=== PATIENT | female | born 1950 | race Caucasian/White ===

== ENCOUNTER 2016-12-04 19:36 | Inpatient (IN) | payer MEDICARE, OTHER ==
[2016-12-04] MEDS ORDERED: ACETAMINOPHEN TAB 500 MG TAB PO STA (19:48)
[2016-12-04 19:50] LABS: Glucose,Whole Blood 435 mg/dL (75-99)
--- NOTE | 2016-12-04 19:51 | ED ---
General Adult HPI - General Chief complaint: Altered Mental Status Stated complaint: altered mental status Time Seen by Provider: 12/04/16 19:38 Source: patient, EMS, RN notes reviewed Mode of arrival: EMS Limitations: altered mental status, physical limitation - History of Present Illness Initial comments: Patient is a pleasant 66-year-old female presenting to the emergency Department with decreased responsiveness. Onset of symptoms was today. Patient's from an [facility] home. Patient is a poor historian and offers little history. Patient states she did have a cough this morning. Patient feels achy all over. Further history is limited and patient has difficulty following commands. - Related Data Home Medications Medication Instructions Recorded Confirmed Cholecalciferol (Vitamin D3) 2,000 unit PO DAILY@1200 12/04/16 12/04/16 [Vitamin D3] Cyanocobalamin [Vitamin B-12] 500 mcg PO DAILY 12/04/16 12/04/16 Divalproex ER [Depakote ER] 1,000 mg PO QAM 12/04/16 12/04/16 Divalproex ER [Depakote ER] 250 mg PO QAM 12/04/16 12/04/16 Docusate [Colace] 100 mg PO HS 12/04/16 12/04/16 Famotidine [Pepcid] 20 mg PO BID 12/04/16 12/04/16 Furosemide [Lasix] 40 mg PO Q48H 12/04/16 12/04/16 Insulin Glargine,Hum.rec.anlog 26 unit SQ DAILY@1200 12/04/16 12/04/16 [Lantus Solostar] Isosorbide Mononitrate ER [Imdur] 30 mg PO DAILY 12/04/16 12/04/16 Levothyroxine Sodium [Synthroid] 137 mcg PO DAILY 12/04/16 12/04/16 Loratadine [Claritin] 10 mg PO HS 12/04/16 12/04/16 Oxybutynin ER [Ditropan Xl] 10 mg PO QAM 12/04/16 12/04/16 Pravastatin Sodium [Pravachol] 40 mg PO HS 12/04/16 12/04/16 QUEtiapine FUMARATE [Seroquel Xr] 800 mg PO DAILY@1700 12/04/16 12/04/16 Allergies Allergy/AdvReac Type Severity Reaction Status Date / Time morphine Allergy Rash/Hives Verified 12/04/16 20:04 Review of Systems ROS Statement: Those systems with pertinent positive or pertinent negative responses have been documented in the HPI. ROS Other: All systems not noted in ROS Statement are negative. Constitutional: Reports: fever Eyes: Denies: eye pain ENT: Reports: throat pain. Denies: ear pain Respiratory: Reports: cough Cardiovascular: Denies: chest pain Endocrine: Reports: fatigue Gastrointestinal: Denies: abdominal pain Genitourinary: Denies: dysuria Musculoskeletal: Denies: back pain Skin: Denies: rash Neurological: Denies: headache Past Medical History Past Medical History: Unable to Obtain, Diabetes Mellitus History of Any Multi-Drug Resistant Organisms: Unobtainable Past Surgical History: Unable to Obtain Past Psychological History: Unable to Obtain Smoking Status: Unknown if ever smoked Past Alcohol Use History: Unable to Obtain Past Drug Use History: None Reported General Exam Limitations: altered mental status, physical limitation General appearance: alert, in no apparent distress Head exam: Present: atraumatic Eye exam: Present: normal appearance, PERRL ENT exam: Present: mucous membranes dry Neck exam: Present: normal inspection Respiratory exam: Present: normal lung sounds bilaterally Cardiovascular Exam: Present: regular rate, normal rhythm GI/Abdominal exam: Present: soft. Absent: tenderness Extremities exam: Present: normal inspection. Absent: calf tenderness Neurological exam: Present: alert. Absent: motor sensory deficit (Somewhat limited exam) Expanded Patient oriented to: Present: person, place. Absent: time Motor strength exam: RUE: 5, LUE: 5, RLE: 5 (Limited exam), LLE: 5 (Limited exam ) Eye Response: (4) open spontaneously Motor Response: (6) obeys commands Verbal Response: (4) confused conversation Psychiatric exam: Present: normal affect, normal mood Skin exam: Present: normal color. Absent: rash Course Vital Signs 12/04/16 19:43 Temperature 100.8 F H Pulse Rate 96 Respiratory 18 Rate Blood Pressure 146/66 O2 Sat by Pulse 94 L Oximetry - Reevaluation(s) Reevaluation #1: 12/04/16 20:16 Urinalysis has concern for infection. Based on this and normal vital signs patient does meet sepsis criteria diagnosed at 2016. 12/04/16 20:57 Patient reevaluated and updated. Patient remains alert. Case discussed in detail with Dr. wolf, who will admit for Dr. Smith. EKG Findings - EKG Comments: EKG Findings:: Normal sinus rhythm 95. RI 170. QRS 86. QT 328. QTC 40. Normal axis. Normal QRS. Nonspecific ST-T. Medical Decision Making - Lab Data Result diagrams: 12/04/16 19:48 12/04/16 19:48 Lab Results 12/04/16 12/04/16 12/04/16 Range/Units 19:47 19:48 19:48 WBC 13.5 H (3.8-10.6) k/uL RBC 4.21 (3.80-5.40) m/uL Hgb 13.0 (11.4-16.0) gm/dL Hct 40.0 (34.0-46.0) % MCV 95.1 (80.0-100.0) fL MCH 30.8 (25.0-35.0) pg MCHC 32.4 (31.0-37.0) g/dL RDW 14.7 (11.5-15.5) % Plt Count 167 (150-450) k/uL Neutrophils % 76 % Lymphocytes % 8 % Monocytes % 13 % Eosinophils % 1 % Basophils % 0 % Neutrophils # 10.2 H (1.3-7.7) k/uL Lymphocytes # 1.1 (1.0-4.8) k/uL Monocytes # 1.8 H (0-1.0) k/uL Eosinophils # 0.1 (0-0.7) k/uL Basophils # 0.1 (0-0.2) k/uL Manual Slide Review Performed Poikilocytosis (manual Present PT (9.0-12.0) sec INR (<1.2) APTT (22.0-30.0) sec Sodium 132 L (137-145) mmol/L Potassium 4.7 (3.5-5.1) mmol/L Chloride 100 (98-107) mmol/L Carbon Dioxide 22 (22-30) mmol/L Anion Gap 10 mmol/L BUN 23 H (7-17) mg/dL Creatinine 1.30 H (0.52-1.04) mg/dL Est GFR (MDRD) Af Amer 50 (>60 ml/min/1.73 sqM) Est GFR (MDRD) Non-Af 41 (>60 ml/min/1.73 sqM) Glucose 531 H* (74-99) mg/dL POC Glucose (mg/dL) 435 H (75-99) mg/dL POC Glu Heat Treater ID Екатерина Aguilera Plasma Lactic Acid Lauri (0.7-2.0) mmol/L Calcium 9.5 (8.4-10.2) mg/dL Total Bilirubin 0.5 (0.2-1.3) mg/dL AST 16 (14-36) U/L ALT 22 (9-52) U/L Alkaline Phosphatase 132 H (38-126) U/L Total Protein 6.3 (6.3-8.2) g/dL Albumin 3.1 L (3.5-5.0) g/dL Urine Color Urine Appearance (Clear) Urine pH (5.0-8.0) Ur Specific [place] (1.001-1.035) Urine Protein (Negative) Urine Glucose (UA) (Negative) Urine Ketones (Negative) Urine Blood (Negative) Urine Nitrite (Negative) Urine Bilirubin (Negative) Urine Urobilinogen (<2.0) mg/dL Ur Leukocyte Esterase (Negative) Urine WBC (0-5) /hpf Urine WBC Clumps (None) /hpf Urine Bacteria (None) /hpf 12/04/16 12/04/16 12/04/16 Range/Units 19:48 19:48 19:56 WBC (3.8-10.6) k/uL RBC (3.80-5.40) m/uL Hgb (11.4-16.0) gm/dL Hct (34.0-46.0) % MCV (80.0-100.0) fL MCH (25.0-35.0) pg MCHC (31.0-37.0) g/dL RDW (11.5-15.5) % Plt Count (150-450) k/uL Neutrophils % % Lymphocytes % % Monocytes % % Eosinophils % % Basophils % % Neutrophils # (1.3-7.7) k/uL Lymphocytes # (1.0-4.8) k/uL Monocytes # (0-1.0) k/uL Eosinophils # (0-0.7) k/uL Basophils # (0-0.2) k/uL Manual Slide Review Poikilocytosis (manual PT 10.8 (9.0-12.0) sec INR 1.1 (<1.2) APTT 25.1 (22.0-30.0) sec Sodium (137-145) mmol/L Potassium (3.5-5.1) mmol/L Chloride (98-107) mmol/L Carbon Dioxide (22-30) mmol/L Anion Gap mmol/L BUN (7-17) mg/dL Creatinine (0.52-1.04) mg/dL Est GFR (MDRD) Af Amer (>60 ml/min/1.73 sqM) Est GFR (MDRD) Non-Af (>60 ml/min/1.73 sqM) Glucose (74-99) mg/dL POC Glucose (mg/dL) (75-99) mg/dL POC Glu Heat Treater ID Plasma Lactic Acid Lauri 1.4 (0.7-2.0) mmol/L Calcium (8.4-10.2) mg/dL Total Bilirubin (0.2-1.3) mg/dL AST (14-36) U/L ALT (9-52) U/L Alkaline Phosphatase (38-126) U/L Total Protein (6.3-8.2) g/dL Albumin (3.5-5.0) g/dL Urine Color Light Yellow Urine Appearance Cloudy H (Clear) Urine pH 6.0 (5.0-8.0) Ur Specific [place] 1.013 (1.001-1.035) Urine Protein 1+ H (Negative) Urine Glucose (UA) 4+ H (Negative) Urine Ketones Trace H (Negative) Urine Blood Small H (Negative) Urine Nitrite Positive H (Negative) Urine Bilirubin Negative (Negative) Urine Urobilinogen <2.0 (<2.0) mg/dL Ur Leukocyte Esterase Moderate H (Negative) Urine WBC 26 H (0-5) /hpf Urine WBC Clumps Occasional H (None) /hpf Urine Bacteria Many H (None) /hpf - Radiology Data Radiology results: image reviewed (Chest x-ray suspicious for left lower lobe infiltrate/effusion) Critical Care Time Critical Care Time: Yes Total Critical Care Time: 31 Disposition Clinical Impression: Sepsis, Urinary tract infection, Pneumonia Disposition: ADMITTED IP TO THIS HOSP Condition: Serious Referrals: Kyree Smith MD [Primary Care Provider] - 1-2 days Decision Time: 20:58
[2016-12-04] MEDS: SODIUM CHLORIDE 0.9% 500 ML IV SCH ×2 (20:02→21:10)
[2016-12-04 20:11] LABS: Basophils # (A) 0.1 k/uL (0-0.2); Basophils % (A) 0 %; CH 29.6; CHCM 31.2; Eosinophils # (A) 0.1 k/uL (0-0.7); Eosinophils % (A) 1 %; Immature Gran Flag Slight; Luc # (Auto) 0.26; Luc % (Auto) 2; Lymphocytes # (A) 1.1 k/uL (1.0-4.8); Lymphocytes % (A) 8 %; MCH 30.8 pg (25.0-35.0); MCHC 32.4 g/dL (31.0-37.0); MCV 95.1 fL (80.0-100.0); Mean Platelet Volume 7.6; Monocytes # (A) 1.8 k/uL (0-1.0); Monocytes % (A) 13 %; Neutrophils # (A) 10.2 k/uL (1.3-7.7); Neutrophils % (A) 76 %; RBC 4.21 m/uL (3.80-5.40); RDW 14.7 % (11.5-15.5); WBC 13.5 k/uL (3.8-10.6); WBC (Perox) 13.43
[2016-12-04 20:12] LABS: Appearance,Urine Cloudy (Clear); Bacteria,Urine Many /hpf; Bilirubin,Urine Negative (Negative); Glucose,Urine (UA) 4+ (Negative); Ketones,Urine Trace (Negative); Leukocyte Esterase,Urine Moderate (Negative); Nitrite,Urine Positive (Negative); Particle Count 22375; Protein,Urine 1+ (Negative); Specific Gravity,Urine 1.013 (1.001-1.035); UA Billing (MACRO vs. MICRO) MICRO; Urobilinogen,Urine <2.0 mg/dL (<2.0); WBC,Urine 26 /hpf (0-5)
[2016-12-04] MEDS ORDERED: INSULIN REGULAR 100 UNIT/ML VIAL SQ ONE (20:13)
--- NOTE | 2016-12-04 20:24 | XR ---
EXAMINATION TYPE: XR chest 2V DATE OF EXAM: 12/04/2016 COMPARISON: NONE HISTORY: Altered mental status TECHNIQUE: Frontal and lateral views of the chest are obtained. FINDINGS: There is blunting of costophrenic angles. There is coarsening of interstitial markings. Th ere is no gross heart failure. Heart size is within normal limits. Thoracic aorta is atheromatous. Th ere are chest leads. Bones appear osteopenic. IMPRESSION: Small pleural effusions. No gross heart failure. There is probably a minimal infiltrate in the left lower lobe.
[2016-12-04 20:27] LABS: INR 1.1 (<1.2); Partial Thromboplastin Time 25.1 sec (22.0-30.0); Prothrombin Time 10.8 sec (9.0-12.0)
[2016-12-04 20:28] LABS: Calcium 9.5 mg/dL (8.4-10.2); Potassium 4.7 mmol/L (3.5-5.1); Total Bilirubin 0.5 mg/dL (0.2-1.3); Total Protein 6.3 g/dL (6.3-8.2)
[2016-12-04 20:36] LABS: Manual Review Performed
[2016-12-04] MEDS ORDERED: PNEUMONIA PROTOCOL UTILIZED 1 EACH MISC PO PRN (20:58)
[2016-12-04] MEDS ORDERED: AZITHROMYCIN 500 MG in SODIUM CHLORIDE 0.9% 250 ML IVPB STA (20:58)
[2016-12-04] MEDS ORDERED: INSULIN LISPRO (humaLOG) 300 UNIT/3 ML VIAL SQ SCH (21:00)
[2016-12-04] MEDS: SODIUM CHLORIDE 0.9% 1,000 ML IV SCH (22:10)
[2016-12-04 23:38] LABS: Glucose,Whole Blood 337 mg/dL (75-99)
[2016-12-05 01:19] LABS: Glucose,Whole Blood 315 mg/dL (75-99)
[2016-12-05] MEDS ORDERED: INSULIN REGULAR 100 UNIT in SODIUM CHLORIDE 0.9% 100 ML IV SCH (01:30)
[2016-12-05 02:36] LABS: Glucose,Whole Blood 213 mg/dL (75-99)
[2016-12-05 03:06] LABS: Glucose,Whole Blood 118 mg/dL (75-99)
[2016-12-05 03:32] LABS: Glucose,Whole Blood 106 mg/dL (75-99)
[2016-12-05 04:12] LABS: Glucose,Whole Blood 82 mg/dL (75-99)
[2016-12-05 04:54] LABS: Glucose,Whole Blood 91 mg/dL (75-99)
[2016-12-05 06:16] LABS: Glucose,Whole Blood 122 mg/dL (75-99)
[2016-12-05 07:22] LABS: Glucose,Whole Blood 139 mg/dL (75-99)
[2016-12-05] MEDS: INSULIN LISPRO (humaLOG) 300 UNIT/3 ML VIAL SQ SCH ×3 (07:48→17:11)
[2016-12-05] MEDS: SODIUM CHLORIDE 0.9% 1,000 ML IV SCH ×2 (08:33→17:02)
[2016-12-05] MEDS: ENOXAPARIN 40 MG/0.4 ML SYRINGE SQ SCH (08:33)
[2016-12-05] MEDS ORDERED: FAMOTIDINE 20 MG TAB PO SCH (09:00)
[2016-12-05 09:06] LABS: Glucose,Whole Blood 353 mg/dL (75-99)
[2016-12-05 09:33] LABS: Glucose,Whole Blood 306 mg/dL (75-99)
[2016-12-05] MEDS: FUROSEMIDE 40 MG TAB PO SCH (09:48)
[2016-12-05] MEDS: ISOSORBIDE MONONITRATE ER 30 MG TAB.ER.24H PO SCH (09:48)
[2016-12-05] MEDS: DIVALPROEX ER 500 MG TAB.ER.24H PO SCH (09:48)
[2016-12-05] MEDS: DIVALPROEX ER 250 MG TAB.ER.24H PO SCH (09:48)
[2016-12-05] MEDS: LEVOTHYROXINE 137 MCG TAB PO SCH (09:49)
[2016-12-05] MEDS: OXYBUTYNIN 10 MG TAB.ER.24 PO SCH (09:49)
[2016-12-05 11:05] LABS: Hemoglobin A1C 9.7 % (4.2-6.1)
[2016-12-05 12:16] LABS: Glucose,Whole Blood 242 mg/dL (75-99)
[2016-12-05] MEDS: CYANOCOBALAMIN 500 MCG TAB PO SCH (12:31)
[2016-12-05] MEDS: INSULIN GLARGINE 100 UNIT/ML 10 ML VIAL SQ SCH (12:31)
[2016-12-05] MEDS: CHOLECALCIFEROL 1,000 UNIT TAB PO SCH (12:31)
[2016-12-05] MEDS ORDERED: LEVOFLOXACIN 500MG-D5W PMX 500 MG in DEXTROSE/WATER 1 100ML.BAG IVPB SCH (14:30)
[2016-12-05] MEDS: PIPERACILLIN-TAZOBACTAM 3.375 GM in DEXTROSE/WATER 1 50ML.BAG IVPB SCH ×2 (17:01→23:20)
[2016-12-05 17:11] LABS: Glucose,Whole Blood 135 mg/dL (75-99)
--- NOTE | 2016-12-05 17:37 | HP ---
HISTORY AND PHYSICAL DATE OF ADMISSION: 12/04/2016 PRESENTING COMPLAINT: Febrile. Lethargic. HISTORY OF PRESENTING COMPLAINT: This is a 66-year-old patient of Dr. Smith who is a resident of [facility] She has not been there for too long. Chronic stable medical conditions include diabetes, myocardial infarction, bipolar, urinary incontinence, hyperlipidemia, hypothyroid. As per the nurse, the patient does use a cane to get about. The patient herself is not much of a historian and really cannot give me a clear picture. The patient was brought in because of decreased responsiveness and was found to be febrile. Sugars were very high. She did get coverage for that and was started on IV antibiotics. Like stated, patient is not really able to give much of a history. Review of systems really could not be done, as the patient is not able to give any history. She keeps talking about her ex-boyfriend and events leading from there. PAST MEDICAL HISTORY: 1. Diabetes. 2. Myocardial infarction. 3. Bipolar. 4. Urinary incontinence. 5. Hyperlipidemia. 6. Hypothyroid. PAST SURGICAL HISTORY: 1. Orthopedic surgery. 2. Right knee surgery. SOCIAL HISTORY: Patient is a resident of [facility]. She is a former smoker. Alcohol: cannot state. FAMILY HISTORY: Patient cannot tell. Attempted. HOME MEDICATIONS: 1. Lantus 26 units at noon. 2. Colace 100 mg at bedtime. 3. Vitamin B12 500 mcg p.o. daily. 4. Vitamin D3 2000 units p.o. daily at noon. 5. Pravachol 40 mg at bedtime. 6. Diovan XL 10 mg p.o. daily. 7. Claritin 10 mg p.o. at bedtime. 8. Imdur ER 30 mg p.o. daily. 9. Seroquel XR 800 mg p.o. daily at 5 p.m. 10.Pepcid 20 mg p.o. b.i.d. 11.Lasix 40 mg p.o. q.48 hours. 12.Synthroid 137 mcg p.o. daily. 13.Depakote ER 1000 mg p.o. in the morning and 250 mg p.o. in the morning. ALLERGIES: MORPHINE. PHYSICAL EXAMINATION: Temperature 100.8, pulse 96, respiratory rate 18, blood pressure 146/76, pulse ox 94% on room air. GENERAL APPEARANCE: Sitting up. Awake. Tired-appearing. EYES: Pupils equal. Conjunctivae normal. HEENT: Oral cavity normal. NECK: JVD not raised. Mass not palpable. RESPIRATORY: Effort normal. Lungs are clear. CARDIOVASCULAR: First and second sounds normal. No edema. ABDOMEN: Soft, nontender. Liver and spleen not palpable. LYMPHATIC: No lymph node palpable in neck or axillae. PSYCHIATRY: Patient is talking about her ex-boyfriend; not much relevant to her presentation. NEUROLOGICAL: Pupils equal. No facial asymmetry. Does move all 4 limbs. INVESTIGATIONS: White count 13.5, hemoglobin 13, potassium 4.7, sodium 132, BUN 23, creatinine 1.30. Blood glucose was 531, the serum positive. ASSESSMENT: 1. Acute diabetic ketoacidosis. 2. Acute urinary tract infection with sepsis, present on admission, with blood cultures showing Gram-negative bacilli. 3. Acute metabolic encephalopathy from sepsis, present on admission. 4. Coronary artery disease with prior history of myocardial infarction. 5. Bipolar disorder. 6. Chronic urinary stress incontinence. 7. Hyperlipidemia. 8. Hypothyroidism. PLAN: Home medications are resumed. Patient is put on IV antibiotic in the form of Zosyn. Will await culture results. Urine culture is also pending. MMODL / IJN: [id number] /
--- NOTE | 2016-12-05 17:42 | XR ---
EXAMINATION TYPE: XR chest 2V DATE OF EXAM: 12/05/2016 COMPARISON: 12/04/2016 HISTORY: 66 year-old female follow-up pneumonia TECHNIQUE: Frontal and lateral views FINDINGS: The heart remains mildly enlarged. Diffuse interstitial prominence persists. Small left pleural effus ion with adjacent opacity is unchanged. IMPRESSION: 1. Mild cardiomegaly. 2. Continued small left pleural effusion with adjacent atelectasis and/or consolidation persists. 3. Given interstitial prominence, correlate to exclude mild CHF as a possible etiology.
[2016-12-05] MEDS: PRAVASTATIN SODIUM 40 MG TAB PO SCH (20:49)
[2016-12-05] MEDS: LORATADINE 10 MG TAB PO SCH (20:49)
[2016-12-05] MEDS ORDERED: AZITHROMYCIN 500 MG TAB PO SCH (21:00)
[2016-12-05 21:23] LABS: Glucose,Whole Blood 217 mg/dL (75-99)
[2016-12-05] MEDS ORDERED: INSULIN LISPRO (humaLOG) 300 UNIT/3 ML VIAL SQ ONE (21:45)
[2016-12-05] MEDS: ACETAMINOPHEN TAB 325 MG TAB PO PRN (23:29)
[2016-12-06] MEDS: SODIUM CHLORIDE 0.9% 1,000 ML IV SCH ×3 (03:02→20:41)
[2016-12-06 03:19] LABS: Glucose,Whole Blood 198 mg/dL (75-99)
[2016-12-06] MEDS: LEVOTHYROXINE 137 MCG TAB PO SCH (05:56)
[2016-12-06] MEDS: PIPERACILLIN-TAZOBACTAM 3.375 GM in DEXTROSE/WATER 1 50ML.BAG IVPB SCH ×2 (07:21→17:44)
[2016-12-06] MEDS: INSULIN LISPRO (humaLOG) 300 UNIT/3 ML VIAL SQ SCH ×3 (07:22→17:44)
[2016-12-06] MEDS: DIVALPROEX ER 250 MG TAB.ER.24H PO SCH (07:23)
[2016-12-06] MEDS: ENOXAPARIN 40 MG/0.4 ML SYRINGE SQ SCH (07:23)
[2016-12-06] MEDS: DIVALPROEX ER 500 MG TAB.ER.24H PO SCH (07:23)
[2016-12-06] MEDS: ISOSORBIDE MONONITRATE ER 30 MG TAB.ER.24H PO SCH (07:24)
[2016-12-06] MEDS: FAMOTIDINE 20 MG TAB PO SCH (07:24)
[2016-12-06] MEDS: OXYBUTYNIN 10 MG TAB.ER.24 PO SCH (07:24)
[2016-12-06 07:38] LABS: Glucose,Whole Blood 159 mg/dL (75-99)
[2016-12-06 10:32] LABS: Basophils % (A) 0 %; CH 29.2; CHCM 30.8; Eosinophils # (A) 0.1 k/uL (0-0.7); Eosinophils % (A) 1 %; HCT 40.1 % (34.0-46.0); HDW 2.27; HGB 12.7 gm/dL (11.4-16.0); Hypochromasia Slight; Luc # (Auto) 0.36; Luc % (Auto) 3; Lymphocytes # (A) 1.3 k/uL (1.0-4.8); Lymphocytes % (A) 12 %; MCHC 31.6 g/dL (31.0-37.0); MCV 95.1 fL (80.0-100.0); Mean Platelet Volume 7.2; Monocytes # (A) 1.7 k/uL (0-1.0); Monocytes % (A) 16 %; Neutrophils # (A) 7.3 k/uL (1.3-7.7); Neutrophils % (A) 68 %; RBC 4.22 m/uL (3.80-5.40); RDW 14.7 % (11.5-15.5); WBC 10.8 k/uL (3.8-10.6)
[2016-12-06 10:54] LABS: Calcium 9.2 mg/dL (8.4-10.2); Potassium 3.7 mmol/L (3.5-5.1)
[2016-12-06 11:41] LABS: Glucose,Whole Blood 192 mg/dL (75-99)
[2016-12-06] MEDS: CYANOCOBALAMIN 500 MCG TAB PO SCH (13:28)
[2016-12-06] MEDS: CHOLECALCIFEROL 1,000 UNIT TAB PO SCH (13:28)
[2016-12-06] MEDS: INSULIN GLARGINE 100 UNIT/ML 10 ML VIAL SQ SCH (13:35)
[2016-12-06] MEDS: ACETAMINOPHEN TAB 325 MG TAB PO PRN (13:39)
[2016-12-06 14:39] VITALS: BMI 34.3
--- NOTE | 2016-12-06 15:38 | XR ---
EXAMINATION TYPE: XR abdomen 2V DATE OF EXAM: 12/06/2016 CLINICAL HISTORY: Acute abdominal pain per order. TECHNIQUE: Supine and upright views of the abdomen are obtained. COMPARISON: None. FINDINGS: Exam is suboptimal secondary to patient's large body habitus. Scattered gas is seen in non -distended small bowel loops. Gas and fecal material is seen in non-distended colon. No pneumoperito neum is seen. There is left basilar opacity felt to reflect atelectasis and/or infiltrate and possibl e small left pleural effusion. Surgical clips left pelvis are seen. Visualized osseous structures are intact. IMPRESSION: Overall nonobstructive bowel gas pattern.
[2016-12-06 16:57] LABS: Glucose,Whole Blood 160 mg/dL (75-99)
--- NOTE | 2016-12-06 17:01 | P.PN ---
Progress Note - Text DATE OF SERVICE: 12/06/2016 PRESENTING COMPLAINT: Febrile and lethargic HISTORY OF PRESENT ILLNESS: 66-year-old female lives in adult [facility] brought in because she had decreased responsiveness and found to be febrile, with elevated sugars. INTERVAL HISTORY: 12/06/2016: Patient lying in bed, appears comfortable, alert to self was noted to be fairly lethargic for a good portion of the day, takes very large single dose of Seroquel 750 mg daily, some complaints of abdominal pain today, abdomen distended. last BM prior to admission. Abdominal x-ray pending. Patient made nothing by mouth pending x-ray. REVIEW OF SYSTEMS: Done for constitutional ,cardiovascular, GI, pulmonary with relevant findings as above. CURRENT MEDICATIONS Depakote, Lovenox, Lasix, Lantus, Synthroid, Zosyn, Seroquel 750 mg by mouth daily, Seroquel XR 50 mg by mouth daily PHYSICAL EXAM VITAL SIGNS: Temperature 96.8, pulse 80, respiratory rate 16, blood pressure 145 or 74, oxygen saturation 96% on 2 L. GENERAL APPEARANCE: . Lying in bed, appears comfortable. EYES: Pupils equal. Conjunctiva normal. NECK: JVD not raised. Mass not palpable. RESPIRATORY: Respiratory effort normal. Lungs clear to auscultation. CARDIOVASCULAR: First and second sounds normal. No edema. ABDOMEN: Soft. Distended Liver and spleen not palpable. Left lower quadrant tenderness. No mass palpable. Distant bowel sounds PSYCHIATRY: Alert and oriented x 1. Mood and affect lethargic at times and more alert at times.. INVESTIGATIONS: White blood cell count 10.8, BUN 19, creatinine 1.25, Accu-Cheks noted. Abdominal x-ray: Gas and fecal matter seen and nondistended:, No pneumoperitoneum, overall nonobstructive bowel gas pattern. Urine culture gram-negative bacilli, sensitivities pending Blood Culture gram-negative bacilli, sensitivities pending ASSESSMENT: -Acute diabetic ketoacidosis, improving -Acute urinary tract infection with sepsis present on admission, with blood culture showing gram-negative bacilli -Acute metabolic encephalopathy from sepsis, present on admission. -Acute abdominal pain likely due to constipation -Coronary artery disease with prior history of myocardial infarction. -Bipolar disorder. -Chronic urinary stress incontinence. -Hyperlipidemia. -Hypothyroidism. PLAN: Abdominal x-ray revealed stool in the colon, bowel regimen initiated, place patient on clear liquid diet, patient's on a pretty hefty dose of Seroquel daily psychiatry consulted to assist with medication management. In the interim dose will be divided. We'll continue with remaining medication and treatment plan will follow closely. FINANCIAL CONTROLLER statement: Patient was seen and examined by nurse practitioner Carmella Rizvi and all elements of the case discussed with attending Dr. Robin
[2016-12-06] MEDS: LORATADINE 10 MG TAB PO SCH (20:41)
[2016-12-06] MEDS: PRAVASTATIN SODIUM 40 MG TAB PO SCH (20:41)
[2016-12-06 21:01] LABS: Glucose,Whole Blood 95 mg/dL (75-99)
[2016-12-06] MEDS ORDERED: LACTULOSE 20 GM/30 ML CUP PO ONE (22:10)
[2016-12-07] MEDS: PIPERACILLIN-TAZOBACTAM 3.375 GM in DEXTROSE/WATER 1 50ML.BAG IVPB SCH ×3 (00:11→16:47)
--- NOTE | 2016-12-07 02:42 | PN ---
PROGRESS NOTE DATE OF SERVICE: December 06, 2016 ATTENDING NOTE: This patient seen examined by me. I discussed with nurse practitioner, Ms. Rizvi. The patient doing better today, did tolerate some diet. EXAMINATION: LUNGS: Clear. CARDIOVASCULAR: First and second sounds normal. INVESTIGATIONS: White count 10.8, potassium 3.7, creatinine 1.25. Accu-Cheks are noted. ASSESSMENT: 1. Acute urinary tract infection with sepsis present on admission with blood cultures growing gram-negative bacilli. 2. Acute metabolic encephalopathy from sepsis present on admission, improving. PLAN: Continue with IV antibiotics. Await culture results. Repeat labs in the morning. MMODL / IJN: [id number] /
[2016-12-07 02:48] LABS: Glucose,Whole Blood 221 mg/dL (75-99)
[2016-12-07] MEDS: LEVOTHYROXINE 137 MCG TAB PO SCH (06:08)
[2016-12-07 07:36] LABS: Glucose,Whole Blood 189 mg/dL (75-99)
[2016-12-07] MEDS: DIVALPROEX ER 500 MG TAB.ER.24H PO SCH (08:10)
[2016-12-07] MEDS: INSULIN LISPRO (humaLOG) 300 UNIT/3 ML VIAL SQ SCH ×3 (08:10→16:50)
[2016-12-07] MEDS: FUROSEMIDE 40 MG TAB PO SCH (08:11)
[2016-12-07] MEDS: ISOSORBIDE MONONITRATE ER 30 MG TAB.ER.24H PO SCH (08:11)
[2016-12-07] MEDS: DIVALPROEX ER 250 MG TAB.ER.24H PO SCH (08:11)
[2016-12-07] MEDS: OXYBUTYNIN 10 MG TAB.ER.24 PO SCH (08:11)
[2016-12-07] MEDS: FAMOTIDINE 20 MG TAB PO SCH (08:11)
[2016-12-07] MEDS: ENOXAPARIN 40 MG/0.4 ML SYRINGE SQ SCH (08:11)
[2016-12-07] MEDS: NYSTATIN 100,000 UNIT/GM POWD 15 GM TOPICAL SCH ×2 (08:47→21:33)
[2016-12-07 09:55] LABS: Basophils % (A) 0 %; CH 29.8; CHCM 31.7; Eosinophils # (A) 0.1 k/uL (0-0.7); Eosinophils % (A) 1 %; HCT 40.6 % (34.0-46.0); HDW 2.41; HGB 12.8 gm/dL (11.4-16.0); Luc # (Auto) 0.22; Luc % (Auto) 2; Lymphocytes # (A) 1.3 k/uL (1.0-4.8); Lymphocytes % (A) 15 %; MCH 29.6 pg (25.0-35.0); MCHC 31.4 g/dL (31.0-37.0); MCV 94.4 fL (80.0-100.0); Mean Platelet Volume 7.6; Monocytes # (A) 1.1 k/uL (0-1.0); Monocytes % (A) 12 %; Neutrophils # (A) 6.3 k/uL (1.3-7.7); Neutrophils % (A) 70 %; RDW 15.5 % (11.5-15.5); WBC (Perox) 8.68
[2016-12-07 10:57] LABS: ALT 48 U/L (9-52); AST 72 U/L (14-36); Alkaline Phosphatase 126 U/L (38-126); Anion Gap 12 mmol/L; Blood Urea Nitrogen 17 mg/dL (7-17); Calcium 9.5 mg/dL (8.4-10.2); Carbon Dioxide 24 mmol/L (22-30); Chloride 107 mmol/L (98-107); Glucose 212 mg/dL (74-99); Non-African American GFR(MDRD) 50 (>60 ml/min/1.73 sqM); Potassium 4.2 mmol/L (3.5-5.1); Sodium 143 mmol/L (137-145); Total Bilirubin 0.2 mg/dL (0.2-1.3); Total Protein 5.8 g/dL (6.3-8.2)
[2016-12-07] MEDS: CYANOCOBALAMIN 500 MCG TAB PO SCH (11:59)
[2016-12-07] MEDS: CHOLECALCIFEROL 1,000 UNIT TAB PO SCH (11:59)
[2016-12-07] MEDS: SODIUM CHLORIDE 0.9% 1,000 ML IV SCH ×2 (11:59→21:33)
[2016-12-07 12:16] LABS: Glucose,Whole Blood 145 mg/dL (75-99)
[2016-12-07] MEDS: INSULIN GLARGINE 100 UNIT/ML 10 ML VIAL SQ SCH (12:23)
--- NOTE | 2016-12-07 17:20 | P.PN ---
Progress Note - Text DATE OF SERVICE: 12/07/2016 PRESENTING COMPLAINT: Febrile and lethargic HISTORY OF PRESENT ILLNESS: 66-year-old female lives in adult [facility]" brought in because she had decreased responsiveness and found to be febrile, with elevated sugars. INTERVAL HISTORY: 12/07/2016: Patient lying in bed appears comfortable. Alert to self, able to answer very simple straightforward questions, continues to complain of abdominal pain, diffuse in nature, abdomen continues to be distended. patient has had 3 bowel movements today. Tolerating her clear liquid diet, currently on bed rest. Psychiatry consulted for assistance with psychiatric medication dosing. 12/06/2016: Patient lying in bed, appears comfortable, alert to self was noted to be fairly lethargic for a good portion of the day, takes very large single dose of Seroquel 750 mg daily, some complaints of abdominal pain today, abdomen distended. last BM prior to admission. Abdominal x-ray pending. Patient made nothing by mouth pending x-ray. REVIEW OF SYSTEMS: Done for constitutional ,cardiovascular, GI, pulmonary with relevant findings as above. CURRENT MEDICATIONS Depakote, Lovenox, Lasix, Lantus, Synthroid, Zosyn, Seroquel 750 mg by mouth daily, Seroquel XR 50 mg by mouth daily PHYSICAL EXAM VITAL SIGNS: Temperature 96.8, pulse 80, respiratory rate 16, blood pressure 145 or 74, oxygen saturation 96% on 2 L. GENERAL APPEARANCE: . Lying in bed, appears comfortable. EYES: Pupils equal. Conjunctiva normal. NECK: JVD not raised. Mass not palpable. RESPIRATORY: Respiratory effort normal. Lungs clear to auscultation. CARDIOVASCULAR: First and second sounds normal. No edema. ABDOMEN: Soft. Distended Liver and spleen not palpable. Left lower quadrant tenderness. No guarding or rigidity No mass palpable. Distant bowel sounds PSYCHIATRY: Alert and oriented x 1. Mood and affect lethargic at times and more alert at times.. INVESTIGATIONS: Creatinine 1.10, AST 72, free T4 0.55, valproic acid 60.0 Urine culture E. coli Blood culture E. coli ASSESSMENT: -Acute diabetic ketoacidosis, improving -Acute urinary tract infection with sepsis present on admission, with blood culture showing gram-negative bacilli, improving -Acute metabolic encephalopathy from sepsis, present on admission, improving. -Acute abdominal pain likely due to constipation -Coronary artery disease with prior history of myocardial infarction. -Bipolar disorder. -Chronic urinary stress incontinence. -Hyperlipidemia. -Hypothyroidism. PLAN: Continue IV antibiotics in the form of Zosyn organism is sensitive to this. Continue clear liquids until patient has improved bowel function, may be able to return to the assisted living facility soon. We will continue to monitor closely. YOUTH PASTOR statement: Patient was seen and examined by nurse practitioner Carmella Rizvi and all elements of the case discussed with attending Dr. Robin
[2016-12-07 17:36] LABS: Glucose,Whole Blood 81 mg/dL (75-99)
--- NOTE | 2016-12-07 20:15 | PN ---
PROGRESS NOTE DATE OF SERVICE: 12/07/16 ATTENDING NOTE: This patient seen and examined by me. I discussed with my nurse practitioner Ms. Rizvi. Patient is admitted with acute UTI with sepsis. E coli both in the urine and blood. The patient's give some laxative not had a bowel movement. Some abdominal discomfort. Abdominal x-ray was nonspecific. EXAM: Lungs are clear. No fever. White count is normal. Abdomen slightly distended. Bowel sounds sluggish. ASSESSMENT: 1. Acute urinary tract infection with sepsis with positive blood cultures with E coli clinically responding. 2. Acute constipation. We will continue with IV Zosyn. Repeat blood cultures today. Will give a soapsuds enema. If not then will get Surgery to see the patient. Otherwise abdominal exam does not appear to be surgical at this point. Initially the patient did tolerate some diet. No nausea, vomiting. MMODL / IJN: [id number] /
[2016-12-07 20:50] LABS: Glucose,Whole Blood 54 mg/dL (75-99)
[2016-12-07 21:26] LABS: Glucose,Whole Blood 45 mg/dL (75-99)
[2016-12-07 21:26] LABS: Glucose,Whole Blood 38 mg/dL (75-99)
[2016-12-07] MEDS: LORATADINE 10 MG TAB PO SCH (21:33)
[2016-12-07] MEDS: PRAVASTATIN SODIUM 40 MG TAB PO SCH (21:33)
[2016-12-07 21:53] LABS: Glucose,Whole Blood 49 mg/dL (75-99)
[2016-12-07 22:13] LABS: Glucose,Whole Blood 104 mg/dL (75-99)
[2016-12-08] MEDS: PIPERACILLIN-TAZOBACTAM 3.375 GM in DEXTROSE/WATER 1 50ML.BAG IVPB SCH ×2 (00:30→07:59)
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
[2016-12-08 02:10] LABS: Glucose,Whole Blood 218 mg/dL (75-99)
[2016-12-08] MEDS: LEVOTHYROXINE 137 MCG TAB PO SCH (06:13)
[2016-12-08] MEDS: SODIUM CHLORIDE 0.9% 1,000 ML IV SCH (06:13)
[2016-12-08 07:22] LABS: Glucose,Whole Blood 175 mg/dL (75-99)
[2016-12-08] MEDS: INSULIN LISPRO (humaLOG) 300 UNIT/3 ML VIAL SQ SCH ×2 (07:49→12:22)
[2016-12-08] MEDS: ENOXAPARIN 40 MG/0.4 ML SYRINGE SQ SCH (07:50)
[2016-12-08] MEDS: DIVALPROEX ER 500 MG TAB.ER.24H PO SCH (07:50)
[2016-12-08] MEDS: DIVALPROEX ER 250 MG TAB.ER.24H PO SCH (07:50)
[2016-12-08] MEDS: FAMOTIDINE 20 MG TAB PO SCH (07:50)
[2016-12-08] MEDS: NYSTATIN 100,000 UNIT/GM POWD 15 GM TOPICAL SCH (07:50)
[2016-12-08] MEDS: ISOSORBIDE MONONITRATE ER 30 MG TAB.ER.24H PO SCH (07:50)
[2016-12-08] MEDS: OXYBUTYNIN 10 MG TAB.ER.24 PO SCH (07:51)
[2016-12-08 11:49] LABS: Anion Gap 10 mmol/L; Blood Urea Nitrogen 15 mg/dL (7-17); Calcium 9.9 mg/dL (8.4-10.2); Carbon Dioxide 29 mmol/L (22-30); Chloride 102 mmol/L (98-107); Glucose 115 mg/dL (74-99); Non-African American GFR(MDRD) 55 (>60 ml/min/1.73 sqM); Sodium 141 mmol/L (137-145)
[2016-12-08] MEDS: CHOLECALCIFEROL 1,000 UNIT TAB PO SCH (12:21)
[2016-12-08] MEDS: CYANOCOBALAMIN 500 MCG TAB PO SCH (12:21)
[2016-12-08] MEDS: INSULIN GLARGINE 100 UNIT/ML 10 ML VIAL SQ SCH (12:21)
[2016-12-08 12:25] LABS: Glucose,Whole Blood 75 mg/dL (75-99)
--- NOTE | 2016-12-08 14:38 | P.DS ---
Providers Date of admission: 12/04/16 20:59 Attending physician: Eugene Robin Consults: 12/06/16 16:21 Consult Physician Stat Consulting Provider: Manolo Sanchez Consult Reason/Comments: medication adjustment Do you want consulting provider notified?: Yes Primary care physician: Kyree [facility] Course: This 66-year-old woman with a past medical history multiple medical problems was admitted with acute UTI sepsis present on admission. E. coli was grown from the cultures. Patient was given IV antibiotics. Patient improved significantly . Patient also had acute diabetic ketoacidosis on presentation which is also improved. Patient is complaining of weakness. PTOT evaluated the patient. ECF rehab is being recommended at this time. Patient be transferred to [facility] at this time. Total time taken 35 minutes. On exam vitals are stable cardio S1 and S2 normal respiratory system few rhonchi. Abdomen soft nontender. No system diffusely weak. Final diagnosis 1. acute UTI with sepsis with E. coli present on admission. 2. Acute diabetic ketoacidosis improved. 3. Acute metabolic encephalopathy secondary to sepsis. 4. Acute abdominal pain possibly related to constipation. 5. CAD history of myocardial infarction. 6. Bipolar disorder. 7. History of for chronic urinary stress incontinence. 8. Hyperlipidemia. 9. Hypothyroidism. 10. Gait dysfunction. Patient Condition at Discharge: Serious Plan - Discharge Summary New Discharge Prescriptions: New Amoxic-Pot Clav 875-125Mg [Augmentin 875-125] 1 tab PO Q12HR #10 tablet INSULIN LISPRO (HumaLOG) [humaLOG] 0 unit SQ ACHS #1 vial Continue Docusate [Colace] 100 mg PO HS Cyanocobalamin [Vitamin B-12] 500 mcg PO DAILY Cholecalciferol (Vitamin D3) [Vitamin D3] 2,000 unit PO DAILY@1200 Pravastatin Sodium [Pravachol] 40 mg PO HS Oxybutynin ER [Ditropan Xl] 10 mg PO QAM Loratadine [Claritin] 10 mg PO HS Isosorbide Mononitrate ER [Imdur] 30 mg PO DAILY QUEtiapine FUMARATE [Seroquel Xr] 800 mg PO DAILY@1700 Famotidine [Pepcid] 20 mg PO BID Furosemide [Lasix] 40 mg PO Q48H Levothyroxine Sodium [Synthroid] 137 mcg PO DAILY Divalproex ER [Depakote ER] 1,000 mg PO QAM Divalproex ER [Depakote ER] 250 mg PO QAM Changed Insulin Glargine,Hum.rec.anlog [Lantus Solostar] 28 unit SQ DAILY@1200 #0 Discharge Medication List Cholecalciferol (Vitamin D3) [Vitamin D3] 2,000 unit PO DAILY@1200 12/04/16 [ History] Cyanocobalamin [Vitamin B-12] 500 mcg PO DAILY 12/04/16 [History] Divalproex ER [Depakote ER] 1,000 mg PO QAM 12/04/16 [History] Divalproex ER [Depakote ER] 250 mg PO QAM 12/04/16 [History] Docusate [Colace] 100 mg PO HS 12/04/16 [History] Famotidine [Pepcid] 20 mg PO BID 12/04/16 [History] Furosemide [Lasix] 40 mg PO Q48H 12/04/16 [History] Isosorbide Mononitrate ER [Imdur] 30 mg PO DAILY 12/04/16 [History] Levothyroxine Sodium [Synthroid] 137 mcg PO DAILY 12/04/16 [History] Loratadine [Claritin] 10 mg PO HS 12/04/16 [History] Oxybutynin ER [Ditropan Xl] 10 mg PO QAM 12/04/16 [History] Pravastatin Sodium [Pravachol] 40 mg PO HS 12/04/16 [History] QUEtiapine FUMARATE [Seroquel Xr] 800 mg PO DAILY@1700 12/04/16 [History] Amoxic-Pot Clav 875-125Mg [Augmentin 875-125] 1 tab PO Q12HR #10 tablet [Rx] INSULIN LISPRO (HumaLOG) [humaLOG] 0 unit SQ ACHS #1 vial 12/08/16 [Rx] Insulin Glargine,Hum.rec.anlog [Lantus Solostar] 28 unit SQ DAILY@1200 #0 12/08 [Rx] Follow up Appointment(s)/Referral(s): Kyree Smith MD [Primary Care Provider] - 1 Week (after dc from [facility]) Bryce Ortiz MD [REFERRING] - 3 Days (while at [facility]) Patient Instructions/Handouts: Type 2 Diabetes in Adults (DC) Activity/Diet/Wound Care/Special Instructions: [facility] cbc,bmp in 3 days Diet: Consistent carb Accu-Cheks before meals and at bedtime Activity: As tolerated
[2016-12-08 15:40] VITALS: BP 104/59; PULSE 83; RESP 18; TEMP 98.7
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
== END 2016-12-08 16:20 | DRG 871 ==
LOC: SUPCPDRO 19:36 → EC 19:36 → EEVIPCON 20:59 → 4MS4W 20:59
PROVIDERS: ADMIT Hospitalist; ATTEND Hospitalist
DX: A41.51 Sepsis due to Escherichia coli [E. coli] (principal); E13.10 Other specified diabetes mellitus with ketoacidosis without coma; G93.41 Metabolic encephalopathy; N39.0 Urinary tract infection, site not specified; E03.9 Hypothyroidism, unspecified; E78.5 Hyperlipidemia, unspecified; F31.9 Bipolar disorder, unspecified; I25.10 Atherosclerotic heart disease of native coronary artery without angina pectoris; I25.2 Old myocardial infarction; K59.00 Constipation, unspecified; N39.3 Stress incontinence (female) (male); R65.20 Severe sepsis without septic shock; R26.9 Unspecified abnormalities of gait and mobility; Z79.4 Long term (current) use of insulin; Z79.899 Other long term (current) drug therapy; Z87.891 Personal history of nicotine dependence
CPT/HCPCS: 36415; 51701; 71020; 74020; 80048; 80053; 80164; 81001; 82009; 82140; 83036; 83605; 84439; 84443; 85025; 85610; 85730; 87040; 87077; 87086; 87186; 93005; 96361; 96365; 99291

== ENCOUNTER → 2020-07-17 | Outpatient (CLI) | payer MEDICARE, OTHER ==
--- NOTE | 2020-07-17 14:51 | FL ---
EXAMINATION TYPE: FL barium swallow w video DATE OF EXAM: 07/17/2020 COMPARISON: NONE HISTORY: Difficulty swallowing TECHNIQUE: Fluoroscopy. FINDINGS: Fluoroscopic guidance was provided for the procedure performed in conjunction with the [facility]. Please see complete report forthcoming from the Speech Pathology departmen t. Various consistencies from thin liquid to solids were administered. Fluoroscopy time 1 minute 35 seconds. Number of images: 0. No aspiration or penetration was evident. Minimal pooling was observed in the posterior oropharynx and hypopharynx. There is some hesitancy of bolus formation for swallowing. IMPRESSION: 1. No aspiration or penetration. 2. Slight delay of bolus formation with minimal residuals within the hypopharynx.
== END | disposition home or self-care (01) ==
LOC: RADFLMAIN 11:09
PROVIDERS: ATTEND Family Medicine
DX: R13.10 Dysphagia, unspecified (principal)
CPT/HCPCS: 74230

== ENCOUNTER → 2022-07-27 | Outpatient (CLI) | payer MEDICARE, OTHER ==
--- NOTE | 2022-08-01 11:51 | US ---
EXAMINATION TYPE: US arterial LE single level DATE OF EXAM: 07/27/2022 2:24 PM CLINICAL INDICATION: Female, 72 years old with history of I87.2 VENOUS INSUFFICIENCY; venous insuffic iency History of: Smoker: Yes, 30 yr. prior Hypertension: Takes medication Diabetic: Yes Hyperlipidemia: Yes TIA/CVA: No Previous Vascular Surgery: No CAD: No CA: No Vascular Ulcers: No Claudication: No Gangrene: No Doppler Waveforms: Right: Biphasic Left: Biphasic Pressure Gradients: Right Brachial Pressure: 161 Left Brachial Pressure: 161 Ankle-Brachial Indices: Right: 1.3 Left: 1.2 Toe Brachial Indices: Right: 0.9 Left: 1.0 IMPRESSION: Normal study.
== END | disposition home or self-care (01) ==
LOC: RADUSWWP 13:14
PROVIDERS: ATTEND Family Medicine
DX: I73.9 Peripheral vascular disease, unspecified (principal); I87.2 Venous insufficiency (chronic) (peripheral); I10 Essential (primary) hypertension; E78.5 Hyperlipidemia, unspecified; E11.9 Type 2 diabetes mellitus without complications
CPT/HCPCS: 93922